=== PATIENT | female | born 1965 | race Caucasian/White ===

== ENCOUNTER 2018-06-26 14:31 | Outpatient (CLI) | payer OTHER | END 2018-06-26 14:40 | disposition home or self-care (01) | LOC: RAD 14:31 | DX: M15.8 Other polyosteoarthritis (principal); M54.2 Cervicalgia ==

== ENCOUNTER 2019-02-08 12:34 | Outpatient (CLI) | payer OTHER | END 2019-02-08 12:44 | disposition home or self-care (01) | LOC: RAD 12:34 → MAMO-SONO 13:15 | DX: E01.0 Iodine-deficiency related diffuse (endemic) goiter (principal); N64.4 Mastodynia; J20.8 Acute bronchitis due to other specified organisms ==

== ENCOUNTER → 2019-02-22 | Outpatient (CLI) | payer OTHER | END | disposition home or self-care (01) | LOC: NUCLEAR 14:00 | DX: M85.80 Other specified disorders of bone density and structure, unspecified site (principal) ==